=== PATIENT | female | born 1950 | race Caucasian/White ===

== ENCOUNTER 2025-02-14 16:21 | Inpatient (IN) | payer MEDICARE ==
[~2025-02-14] VITALS: Ht 162.6 cm; Wt 61.2 kg
[2025-02-15 08:55] VITALS: BP 127/83; TEMP 98.8
[2025-02-15 09:20] VITALS: BP 127/83; TEMP 98.8
[2025-02-15 19:00] VITALS: BP 102/60; TEMP 97.8; O2SAT 96
[2025-02-15] MEDS ORDERED: EMPA10TA PO (20:28)
[2025-02-15] MEDS ORDERED: NALO4SPR NS (20:28)
[2025-02-15] MEDS ORDERED: METH-806 PO (20:28)
[2025-02-15] MEDS ORDERED: ALPR0.5T PO (20:28)
[2025-02-15] MEDS ORDERED: NIAC-48 PO (20:28)
[2025-02-15] MEDS ORDERED: CALC-903 PO (20:28)
[2025-02-15] MEDS ORDERED: DOCU100T2 PO (20:28)
[2025-02-15] MEDS ORDERED: ALBU18HF2 INH (20:28)
[2025-02-15] MEDS ORDERED: CYCL30DR EACHEYE (20:28)
[2025-02-15] MEDS ORDERED: FLUT16SP16 NS (20:28)
[2025-02-15] MEDS ORDERED: FLUO20TA28 PO (20:28)
[2025-02-15] MEDS ORDERED: BISA5TAB10 PO (20:28)
[2025-02-15] MEDS ORDERED: FERR325T23 PO (20:28)
[2025-02-15] MEDS ORDERED: SACU1TAB PO (20:28)
[2025-02-15] MEDS ORDERED: HYDR-894 PO (20:28)
[2025-02-15] MEDS ORDERED: BUSP10TA3 PO (20:28)
[2025-02-15] MEDS ORDERED: LEVA0.6320 IH (20:28)
[2025-02-15] MEDS ORDERED: ONDA4TAB11 PO (20:28)
[2025-02-15] MEDS ORDERED: RIVA15TA2 PO (20:28)
[2025-02-15] MEDS ORDERED: FAMO20TA8 PO (20:28)
[2025-02-15] MEDS ORDERED: ATOR40TA PO (20:28)
[2025-02-15] MEDS ORDERED: PRED50TA PO (20:28)
[2025-02-15] MEDS ORDERED: CHOL10005 PO (20:28)
[2025-02-15] MEDS ORDERED: AMIO200T5 PO (20:28)
[2025-02-15] MEDS ORDERED: CARV6.252 PO (20:28)
[2025-02-15] MEDS ORDERED: LEVALBUTEROL HCL NEB 0.63 MG/3 ML NEBU IH PRN (20:45)
[2025-02-15] MEDS ORDERED: ALBUTEROL SULFATE 8 GM HFA.AER.AD INH PRN (20:45)
[2025-02-15] MEDS ORDERED: ALPRAZOLAM 0.5 MG TABLET PO PRN (20:45)
[2025-02-15] MEDS ORDERED: BISACODYL 5 MG TABLET.DR PO PRN (20:45)
[2025-02-15] MEDS ORDERED: METHOCARBAMOL 500 MG TABLET PO PRN (20:45)
[2025-02-15] MEDS ORDERED: NALOXONE NASAL SPRAY 4 MG SPRAY NS PRN (20:45)
[2025-02-15] MEDS ORDERED: ONDANSETRON ODT 4 MG TAB.RAPDIS SL PRN (20:45)
[2025-02-15] MEDS: ALPRAZOLAM 0.5 MG TABLET PO PRN (21:25)
[2025-02-15] MEDS: HYDROCODONE/APAP 5-325MG TABLET PO PRN (21:26)
[2025-02-15] MEDS ORDERED: DOCUSATE SODIUM 100 MG CAPSULE PO PRN (21:30)
[2025-02-15] MEDS ORDERED: REMEDY ESSENTIAL ZINC PASTE 113 GM TOP PRN (23:15)
[2025-02-16 03:59] VITALS: BP 102/60; TEMP 97.8; O2SAT 96
[2025-02-16 07:22] VITALS: BP 127/85; TEMP 97.9; O2SAT 97
[2025-02-16] MEDS ORDERED: NALOXONE NASAL SPRAY 4 MG SPRAY NS PRN (08:00)
[2025-02-16] MEDS ORDERED: ALBUTEROL SULFATE 8 GM HFA.AER.AD INH PRN (08:00)
[2025-02-16] MEDS: SACUBITRIL/VALSARTAN 24 MG-26 TABLET PO SCH (09:00)
[2025-02-16] MEDS: EMPAGLIFLOZIN 10 MG TABLET PO SCH (09:00)
[2025-02-16] MEDS ORDERED: NIACIN 500 MG TABLET.SA PO SCH ×2 (09:00→11:30)
[2025-02-16] MEDS: FLUOXETINE HCL 20 MG CAPSULE PO SCH (09:00)
[2025-02-16] MEDS: FLUTICASONE PROP NASAL SPRAY 16 GM BOTTLE NS SCH (09:00)
[2025-02-16 09:02] VITALS: BP 129/80; TEMP 98.2; O2SAT 96
[2025-02-16] MEDS: FERROUS SULFATE 325 MG TABEC PO SCH (09:14)
[2025-02-16] MEDS: CALCIUM CARBONATE 600 MG TABLET PO SCH (09:15)
[2025-02-16] MEDS: CHOLECALCIFEROL 1,000 UNIT TABLET PO SCH (09:15)
[2025-02-16] MEDS: RIVAROXABAN 15 MG TABLET PO SCH (09:16)
[2025-02-16] MEDS: FAMOTIDINE 20 MG TABLET PO SCH (09:17)
[2025-02-16] MEDS: ATORVASTATIN 40 MG TABLET PO SCH (09:17)
[2025-02-16] MEDS: AMIODARONE HCL 200 MG TABLET PO SCH (09:18)
[2025-02-16] MEDS: CARVEDILOL 6.25 MG TABLET PO SCH (09:18)
[2025-02-16] MEDS ORDERED: VITA-287 PO (10:29)
[2025-02-16] MEDS ORDERED: LEVALBUTEROL HCL NEB 0.63 MG/3 ML NEBU IH PRN (10:45)
[2025-02-16] MEDS ORDERED: ALBUTEROL SULFATE 1.25 MG/3 ML NEBU NEB PRN (12:15)
[2025-02-16] MEDS ORDERED: ACETAMINOPHEN/CODEINE 300-30 MG TABLET PO PRN (12:30)
[2025-02-16 15:12] LABS: PLATELET COUNT (AUTO) 243 K/uL (179-408); RED BLOOD CELL COUNT(AUTO) 3.80 MIL/uL (3.63-4.92); RED CELL DISTRIBUTION WIDTH 18.6 % (12.3-17.7); WHITE BLOOD COUNT (AUTO) 9.7 K/uL (3.8-11.8)
[2025-02-16 15:22] LABS: CREATININE 1.8 mg/dL (0.6-1.3); SODIUM SERUM 135 mmol/L (136-145); UREA NITROGEN, BLOOD 46 mg/dL (7-18)
[2025-02-16 15:53] LABS: BAND % (MANUAL) 1 % (0-10); LYMPHOCYTES % (MANUAL) 8 % (20-40); MONOCYTES % (MANUAL) 9 % (2-10); NEUTROPHILS % (MANUAL) 82 % (42-75); PLATELET ESTIMATE ADEQUATE
[2025-02-16] MEDS ORDERED: HYDR-3974 PO (16:25)
[2025-02-16] MEDS ORDERED: ACET1TAB23 PO (16:26)
[2025-02-16] MEDS ORDERED: ALBU1.257 NEB (17:14)
[2025-02-17] MEDS ORDERED: FLUOXETINE HCL 20 MG CAPSULE PO SCH (09:00)
[2025-02-17] MEDS ORDERED: RIVAROXABAN 15 MG TABLET PO SCH (18:00)
[2025-02-18] MEDS ORDERED: FERROUS SULFATE 325 MG TABEC PO SCH (09:00)
[2025-02-18] MEDS ORDERED: BUSP10TA3 PO (15:52)
[2025-02-18] MEDS ORDERED: RIVA15TA2 PO (15:52)
[2025-02-18] MEDS ORDERED: METH-806 PO (15:52)
[2025-02-18 16:00] VITALS: BP 114/63; TEMP 97.8; O2SAT 96
[2025-02-18] MEDS ORDERED: ACET325T53 PO (16:13)
[2025-02-18] MEDS ORDERED: BUTA1CAP46 PO (16:15)
[2025-02-18] MEDS ORDERED: CEFT1FRO2 IV (16:17)
[2025-02-18] MEDS ORDERED: MAGN400O6 PO (16:20)
[2025-02-18] MEDS ORDERED: ONDA4VIA23 IV (16:22)
[2025-02-18] MEDS ORDERED: ZINC113P3 TP (16:24)
[2025-02-18] MEDS ORDERED: ACETAMINOPHEN PO PRN (17:30)
[2025-02-18] MEDS ORDERED: CAFFEINE PO PRN (17:30)
[2025-02-18] MEDS ORDERED: ALBUTEROL SULFATE 1.25 MG/3 ML NEBU NEB PRN (17:30)
[2025-02-18] MEDS ORDERED: MAGNESIUM HYDROXIDE 30 ML LIQUID UDC PO PRN (17:30)
[2025-02-18] MEDS ORDERED: [UNRECOGNIZED DRUG - OTHER] PO PRN (17:30)
[2025-02-18] MEDS ORDERED: BISACODYL 5 MG TABLET.DR PO PRN (17:30)
[2025-02-18] MEDS ORDERED: BUTALB PO PRN (17:30)
[2025-02-18] MEDS ORDERED: METHOCARBAMOL 500 MG TABLET PO PRN (17:30)
[2025-02-18] MEDS ORDERED: ONDANSETRON 4 MG/2 ML VIAL IV PRN (17:30)
[2025-02-18] MEDS ORDERED: SACUBITRIL/VALSARTAN 24 MG-26 TABLET PO SCH (18:00)
[2025-02-18] MEDS: RIVAROXABAN 15 MG TABLET PO SCH (18:11)
[2025-02-18] MEDS: ALPRAZOLAM 0.5 MG TABLET PO PRN (18:55)
[2025-02-18 20:00] VITALS: BP 113/68; TEMP 98.3; O2SAT 98
[2025-02-18] MEDS: CARVEDILOL 6.25 MG TABLET PO SCH (20:51)
[2025-02-18] MEDS: FLUOXETINE HCL 10 MG CAPSULE PO ONE (20:51)
[2025-02-18] MEDS: REMEDY ESSENTIAL ZINC PASTE 113 GM TOP SCH (20:52)
[2025-02-18] MEDS: SACUBITRIL/VALSARTAN 24 MG-26 TABLET PO SCH (21:32)
[2025-02-19] VITALS (7 sets, daily range): BP systolic 117–154; BP diastolic 66–81; TEMP 97.6–99.1; O2SAT 95–99
[2025-02-19 07:17] LABS: PLATELET COUNT (AUTO) 242 K/uL (179-408); RED BLOOD CELL COUNT(AUTO) 3.91 MIL/uL (3.63-4.92); RED CELL DISTRIBUTION WIDTH 19.0 % (12.3-17.7); WHITE BLOOD COUNT (AUTO) 9.1 K/uL (3.8-11.8)
[2025-02-19 07:42] LABS: ASPARTATE AMINOTRANSFERASE 30 U/L (15-37); CREATININE 0.7 mg/dL (0.6-1.3); SODIUM SERUM 139 mmol/L (136-145); TOTAL PROTEIN, SERUM 4.7 g/dL (6.4-8.2); UREA NITROGEN, BLOOD 25 mg/dL (7-18)
[2025-02-19] MEDS: FLUTICASONE PROP NASAL SPRAY 16 GM BOTTLE NS SCH (08:46)
[2025-02-19] MEDS: VITAMIN B COMPLEX 1 TABLET PO SCH (08:47)
[2025-02-19] MEDS: AMIODARONE HCL 200 MG TABLET PO SCH (08:48)
[2025-02-19] MEDS: CALCIUM CARBONATE 600 MG TABLET PO SCH (08:48)
[2025-02-19] MEDS: EMPAGLIFLOZIN 10 MG TABLET PO SCH (08:51)
[2025-02-19] MEDS: CEphaleXIN 250 MG CAPSULE PO SCH (08:51)
[2025-02-19] MEDS: ATORVASTATIN 40 MG TABLET PO SCH (08:52)
[2025-02-19] MEDS: FAMOTIDINE 20 MG TABLET PO SCH (08:52)
[2025-02-19] MEDS: FLUOXETINE HCL 10 MG CAPSULE PO SCH (08:52)
[2025-02-19] MEDS: CHOLECALCIFEROL 1,000 UNIT TABLET PO SCH (08:53)
[2025-02-19] MEDS ORDERED: FLUOXETINE HCL 20 MG CAPSULE PO SCH ×2 (09:00)
[2025-02-19] MEDS ORDERED: NIACIN 500 MG TABLET.SA PO SCH (09:00)
[2025-02-19] MEDS: DOCUSATE SODIUM 100 MG CAPSULE PO PRN (10:54)
[2025-02-19] MEDS: MAGNESIUM HYDROXIDE 30 ML LIQUID UDC PO PRN (15:02)
[2025-02-19] MEDS: PROTEIN SUPPLEMENT (PROSTAT) 30 ML LIQUID PO SCH (16:48)
[2025-02-19] MEDS: FLEET ENEMA 133 ML BOTTLE RC ONE (20:13)
[2025-02-19] MEDS: DOCUSATE SODIUM 100 MG CAPSULE PO SCH (20:14)
[2025-02-19] MEDS: BUTALB/ACETAMINOPHEN/CAFFEINE CAPSULE PO PRN (21:12)
[2025-02-20 07:14] VITALS: BP 119/71; TEMP 98.1; O2SAT 97
[2025-02-20 07:14] LABS: PLATELET COUNT (AUTO) 253 K/uL (179-408); RED BLOOD CELL COUNT(AUTO) 3.93 MIL/uL (3.63-4.92); RED CELL DISTRIBUTION WIDTH 19.0 % (12.3-17.7); WHITE BLOOD COUNT (AUTO) 8.9 K/uL (3.8-11.8)
[2025-02-20 07:30] LABS: ASPARTATE AMINOTRANSFERASE 32 U/L (15-37); CREATININE 0.9 mg/dL (0.6-1.3); SODIUM SERUM 138 mmol/L (136-145); TOTAL PROTEIN, SERUM 4.8 g/dL (6.4-8.2); UREA NITROGEN, BLOOD 21 mg/dL (7-18)
[2025-02-20] MEDS: FERROUS SULFATE 325 MG TABEC PO SCH (09:04)
[2025-02-20] MEDS: ACETAMINOPHEN 325 MG TABLET PO PRN (11:20)
[2025-02-20 17:06] VITALS: O2SAT 97
[2025-02-20 18:34] LABS: *BILIRUBIN,URIN NEGATIVE (NEGATIVE); *BLOOD, URINE 3+ (NEGATIVE); *CLARITY,URINE SLIGHTLY CLOUDY (CLEAR); *COLOR,URINE YELLOW (YELLOW); *KETONES,URINE NEGATIVE (NEGATIVE); *PROTEIN,URINE 1+ (NEGATIVE); *UROBILINOGEN,URINE 0.2 E.U./dl (NORMAL); LEUKOCYTE ESTERASE ,URINE 3+ (NEGATIVE); NITRITE, URINE NEGATIVE (NEGATIVE); UGLUCOSE 3+ (NEGATIVE)
[2025-02-20 18:44] LABS: SQUAMOUS EPITHELIAL CELL,UR FEW /HPF (NONE SEEN)
[2025-02-20 19:51] VITALS: BP 123/78; TEMP 98.1; O2SAT 97
[2025-02-20] MEDS: SUMATRIPTAN SUCCINATE 6 MG/0.5 ML VIAL SQ ONE (20:20)
[2025-02-20] MEDS: ALPRAZOLAM 0.5 MG TABLET PO PRN (20:28)
[2025-02-21 05:13] VITALS: BP 118/72; TEMP 97.8; O2SAT 96
[2025-02-21 06:01] VITALS: O2SAT 97
[2025-02-21 08:00] VITALS: BP 142/86; TEMP 98.5; O2SAT 99
[2025-02-21 17:30] VITALS: O2SAT 97
[2025-02-21 18:20] VITALS: BP 108/64; TEMP 98.1; O2SAT 96
[2025-02-21 20:00] VITALS: BP 108/61; TEMP 98.4
[2025-02-21] MEDS: SULFAMETH/TRIMETH 800/160 MG TABLET PO SCH (21:43)
[2025-02-22 00:33] VITALS: O2SAT 97
[2025-02-22 07:50] VITALS: BP 140/84; TEMP 98.2; O2SAT 97
[2025-02-22 13:37] VITALS: O2SAT 97
[2025-02-22 16:04] VITALS: BP 131/77; TEMP 98; O2SAT 99
[2025-02-22 20:11] VITALS: BP 134/83; TEMP 98.1; O2SAT 99
[2025-02-23 05:59] VITALS: BP 149/80; TEMP 98.3; O2SAT 97
[2025-02-23 08:03] VITALS: BP 159/85; TEMP 98.9; O2SAT 99
[2025-02-23 17:10] VITALS: BP 134/80; TEMP 98.9; O2SAT 96
[2025-02-23 20:30] VITALS: BP 113/60; TEMP 98.5; O2SAT 98
[2025-02-23 21:55] VITALS: O2SAT 97
[2025-02-24 05:25] VITALS: BP 135/74; TEMP 98.1; O2SAT 98
[2025-02-24 10:35] VITALS: O2SAT 97
[2025-02-24 16:14] VITALS: BP 109/66; TEMP 97.7; O2SAT 97
[2025-02-24 20:00] VITALS: BP 111/59; TEMP 97.9; O2SAT 98
[2025-02-24 21:54] VITALS: O2SAT 97
[2025-02-25] VITALS (8 sets, daily range): BP systolic 103–136; BP diastolic 54–65; TEMP 97.4–98.1; O2SAT 95–98
[2025-02-26 00:16] VITALS: O2SAT 97
[2025-02-26 05:45] VITALS: BP 132/63; TEMP 98; O2SAT 97
[2025-02-26 07:35] LABS: PLATELET COUNT (AUTO) 319 K/uL (179-408); RED BLOOD CELL COUNT(AUTO) 3.43 MIL/uL (3.63-4.92); RED CELL DISTRIBUTION WIDTH 18.5 % (12.3-17.7); WHITE BLOOD COUNT (AUTO) 10.5 K/uL (3.8-11.8)
[2025-02-26 08:00] LABS: ASPARTATE AMINOTRANSFERASE 44 U/L (15-37); CREATININE 1.1 mg/dL (0.6-1.3); SODIUM SERUM 134 mmol/L (136-145); TOTAL PROTEIN, SERUM 5.6 g/dL (6.4-8.2); UREA NITROGEN, BLOOD 14 mg/dL (7-18)
[2025-02-26 10:35] VITALS: O2SAT 97
[2025-02-26] MEDS ORDERED: NEUTRA PHOS PACKET PO ONE (13:00)
[2025-02-26] MEDS: NEUTRA PHOS PACKET PO ONE (14:32)
[2025-02-26] MEDS: POTASSIUM CHLORIDE 20 MEQ TAB.PRT.SR PO ONE ×2 (14:32→17:27)
[2025-02-26] MEDS: LORAZEPAM 2 MG/1 ML VIAL IM ONE (16:31)
[2025-02-26 18:49] VITALS: BP 96/61; TEMP 97.8; O2SAT 96
[2025-02-26 20:13] VITALS: BP 114/66; TEMP 97.6; O2SAT 97
[2025-02-26] MEDS: LOPERAMIDE HCL 2 MG CAPSULE PO PRN (20:51)
[2025-02-27] VITALS (7 sets, daily range): BP systolic 102–135; BP diastolic 56–75; TEMP 97.7–98.3; O2SAT 97
[2025-02-27 06:59] LABS: CREATININE 1.1 mg/dL (0.6-1.3); SODIUM SERUM 136 mmol/L (136-145); UREA NITROGEN, BLOOD 9 mg/dL (7-18)
[2025-02-27] MEDS: ONDANSETRON HCL 4 MG TABLET PO PRN (10:27)
[2025-02-28 05:11] VITALS: BP 124/50; TEMP 98.2; O2SAT 98
[2025-02-28 08:32] VITALS: BP 130/67
[2025-02-28 15:33] VITALS: O2SAT 98
== END 2025-02-28 15:15 | disposition home health service (06) | DRG 189 ==
LOC: UNDODISIN 02-16 15:40
PROVIDERS: ADMIT Physical Medicine & Rehabilitation Pain Medicine; ATTEND Physical Medicine & Rehabilitation Pain Medicine
DX: J96.21 Acute and chronic respiratory failure with hypoxia (principal); E43 Unspecified severe protein-calorie malnutrition; N17.0 Acute kidney failure with tubular necrosis; I13.0 Hypertensive heart and chronic kidney disease with heart failure and stage 1 through stage 4 chronic kidney disease, or unspecified chronic kidney disease; I50.32 Chronic diastolic (congestive) heart failure; I48.20 Chronic atrial fibrillation, unspecified; J44.1 Chronic obstructive pulmonary disease with (acute) exacerbation; K56.7 Ileus, unspecified; D68.59 Other primary thrombophilia; E87.1 Hypo-osmolality and hyponatremia; E78.5 Hyperlipidemia, unspecified; I48.0 Paroxysmal atrial fibrillation; Z85.3 Personal history of malignant neoplasm of breast; Z79.01 Long term (current) use of anticoagulants; N18.9 Chronic kidney disease, unspecified; Z90.81 Acquired absence of spleen; Z90.5 Acquired absence of kidney; Z90.12 Acquired absence of left breast and nipple; Z85.528 Personal history of other malignant neoplasm of kidney; M19.90 Unspecified osteoarthritis, unspecified site; Z96.642 Presence of left artificial hip joint; R53.1 Weakness; N83.9 Noninflammatory disorder of ovary, fallopian tube and broad ligament, unspecified; E87.6 Hypokalemia; E88.09 Other disorders of plasma-protein metabolism, not elsewhere classified; F32.A Depression, unspecified; F41.9 Anxiety disorder, unspecified; G89.29 Other chronic pain; I95.1 Orthostatic hypotension; Z87.891 Personal history of nicotine dependence; Z99.81 Dependence on supplemental oxygen
CPT/HCPCS: 36415; 70030-TC; 74018; 83605; 83735; 84100; 85025; 85610; 87086; 97535-GO-CO; A4663; J2060; J3030; J3535; J7040; J7512; Q0162

== ENCOUNTER 2025-02-16 15:53 | Inpatient (IN) | payer MEDICARE ==
[~2025-02-16] VITALS: Ht 162.6 cm; Wt 62.6 kg
[~2025-02-16 15:53] MED LIST: ALBU18HF2 INH; ALPR0.5T PO; AMIO200T5 PO; ATOR40TA PO; BISA5TAB10 PO; BUSP10TA3 PO; CALC-903 PO; CARV6.252 PO; CHOL10005 PO; CYCL30DR EACHEYE; DOCU100T2 PO; EMPA10TA PO; FAMO20TA8 PO; FERR325T23 PO; FLUO20TA28 PO; FLUT16SP16 NS; HYDR-894 PO; LEVA0.6320 IH; METH-806 PO; NALO4SPR NS; NIAC-48 PO; ONDA4TAB11 PO; PRED50TA PO; RIVA15TA2 PO; SACU1TAB PO; VITA-287 PO
[2025-02-16 16:00] VITALS: BP 101/63; TEMP 98.1; O2SAT 96
[2025-02-16] MEDS ORDERED: HYDR-3974 PO (16:25)
[2025-02-16] MEDS ORDERED: ACET1TAB23 PO (16:26)
[2025-02-16] MEDS ORDERED: ALBU1.257 NEB (17:14)
[2025-02-16] MEDS ORDERED: MAGNESIUM HYDROXIDE 30 ML LIQUID UDC PO PRN (19:00)
[2025-02-16] MEDS ORDERED: ACETAMINOPHEN 325 MG TABLET PO PRN (19:00)
[2025-02-16] MEDS ORDERED: ONDANSETRON 4 MG/2 ML VIAL IV PRN (19:00)
[2025-02-16] MEDS: POTASSIUM CHLORIDE 20 MEQ TAB.PRT.SR PO ONE (20:40)
[2025-02-16] MEDS: IV NS 1000 ML 1,000 ML IV ONE (20:40)
[2025-02-16 21:05] VITALS: BP 100/58; TEMP 97.9; O2SAT 98
[2025-02-16] MEDS ORDERED: METHOCARBAMOL 500 MG TABLET PO PRN (23:00)
[2025-02-16] MEDS ORDERED: ALBUTEROL SULFATE 1.25 MG/3 ML NEBU NEB PRN (23:00)
[2025-02-16] MEDS ORDERED: BISACODYL 5 MG TABLET.DR PO PRN (23:00)
[2025-02-16] MEDS ORDERED: DOCUSATE SODIUM 100 MG CAPSULE PO PRN (23:45)
[2025-02-17] VITALS (7 sets, daily range): BP systolic 117–148; BP diastolic 68–78; TEMP 97.6–99.2; O2SAT 93–99
[2025-02-17 07:26] LABS: PLATELET COUNT (AUTO) 259 K/uL (179-408); RED BLOOD CELL COUNT(AUTO) 3.95 MIL/uL (3.63-4.92); RED CELL DISTRIBUTION WIDTH 18.7 % (12.3-17.7); WHITE BLOOD COUNT (AUTO) 8.6 K/uL (3.8-11.8)
[2025-02-17 08:07] LABS: CREATININE 1.2 mg/dL (0.6-1.3); SODIUM SERUM 139 mmol/L (136-145); UREA NITROGEN, BLOOD 44 mg/dL (7-18)
[2025-02-17] MEDS: FLUTICASONE PROP NASAL SPRAY 16 GM BOTTLE NS SCH (08:39)
[2025-02-17] MEDS: FAMOTIDINE 20 MG TABLET PO SCH (08:40)
[2025-02-17] MEDS: CALCIUM CARBONATE 600 MG TABLET PO SCH (08:40)
[2025-02-17] MEDS: FLUOXETINE HCL 20 MG CAPSULE PO SCH (08:40)
[2025-02-17] MEDS: CHOLECALCIFEROL 1,000 UNIT TABLET PO SCH (08:40)
[2025-02-17] MEDS: ATORVASTATIN 40 MG TABLET PO SCH (08:40)
[2025-02-17] MEDS: VITAMIN B COMPLEX 1 TABLET PO SCH (08:40)
[2025-02-17] MEDS: EMPAGLIFLOZIN 10 MG TABLET PO SCH (08:48)
[2025-02-17] MEDS: NIACIN 500 MG TABLET.SA PO SCH (09:00)
[2025-02-17] MEDS: IV NS 1000 ML 1,000 ML IV SCH (10:16)
[2025-02-17] MEDS: AMIODARONE HCL 200 MG TABLET PO SCH (10:18)
[2025-02-17] MEDS: ALPRAZOLAM 0.5 MG TABLET PO PRN (10:18)
[2025-02-17 12:16] LABS: *BLOOD, URINE 3+ (NEGATIVE); *CLARITY,URINE SLIGHTLY CLOUDY (CLEAR); *COLOR,URINE RED (YELLOW); *KETONES,URINE NEGATIVE (NEGATIVE); *UROBILINOGEN,URINE 1.0 E.U./dl (NORMAL); LEUKOCYTE ESTERASE ,URINE 1+ (NEGATIVE); NITRITE, URINE POSITIVE (NEGATIVE)
[2025-02-17 12:23] LABS: *PROTEIN,URINE 3+ (NEGATIVE)
[2025-02-17 12:24] LABS: *BILIRUBIN,URIN 1+ (NEGATIVE); UGLUCOSE 2+ (NEGATIVE)
[2025-02-17 12:40] LABS: SQUAMOUS EPITHELIAL CELL,UR FEW /HPF (NONE SEEN); TRIPLE PHOSPHATE CRYSTAL,UR MANY /HPF (NONE SEEN)
[2025-02-17 13:08] LABS: *CREATININE,URINE 51.2 mg/dL (30-125); *SODIUM RNDM,URINE 25.0 mmol/L (40-220); *URINE TOTAL PROTEIN RANDOM 156.5 mg/dL (<150/24HR)
[2025-02-17] MEDS: NEUTRA PHOS PACKET PO ONE (13:17)
[2025-02-17] MEDS: HYDROCODONE/APAP 5-325MG TABLET PO PRN (13:22)
[2025-02-17] MEDS ORDERED: KETOROLAC TROMETHAMINE 15 MG INJ IVP ONE (13:45)
[2025-02-17] MEDS ORDERED: METOCLOPRAMIDE HCL 10 MG/2 ML VIAL IV ONE (13:45)
[2025-02-17] MEDS: diphenhydrAMINE 50 MG/1 ML VIAL IV ONE (14:40)
[2025-02-17] MEDS ORDERED: CEFTRIAXONE 1 G VIAL IV SCH (14:45)
[2025-02-17] MEDS: BUTALB/ACETAMINOPHEN/CAFFEINE CAPSULE PO PRN (15:09)
[2025-02-17] MEDS: CEFTRIAXONE 1 G in IV DEXTROSE 5% 50 ML IV SCH (16:00)
[2025-02-17] MEDS: CARVEDILOL 6.25 MG TABLET PO SCH (17:27)
[2025-02-17] MEDS: RIVAROXABAN 15 MG TABLET PO SCH (17:28)
[2025-02-17] MEDS: REMEDY ESSENTIAL ZINC PASTE 113 GM TP PRN (17:36)
[2025-02-18 00:26] VITALS: BP 119/68; TEMP 98.4; O2SAT 96
[2025-02-18 04:39] VITALS: BP 143/81; TEMP 98.4; O2SAT 97
[2025-02-18 05:42] VITALS: O2SAT 98
[2025-02-18 06:59] LABS: PLATELET COUNT (AUTO) 252 K/uL (179-408); RED BLOOD CELL COUNT(AUTO) 3.83 MIL/uL (3.63-4.92); RED CELL DISTRIBUTION WIDTH 18.9 % (12.3-17.7); WHITE BLOOD COUNT (AUTO) 9.3 K/uL (3.8-11.8)
[2025-02-18 07:27] LABS: ASPARTATE AMINOTRANSFERASE 21 U/L (15-37); CREATININE 1.4 mg/dL (0.6-1.3); SODIUM SERUM 138 mmol/L (136-145); TOTAL PROTEIN, SERUM 4.5 g/dL (6.4-8.2); UREA NITROGEN, BLOOD 37 mg/dL (7-18)
[2025-02-18 07:34] VITALS: BP 147/74; TEMP 98.3; O2SAT 99
[2025-02-18 08:34] VITALS: BP 147/74
[2025-02-18] MEDS: FERROUS SULFATE 325 MG TABEC PO SCH (08:34)
[2025-02-18] MEDS: NEUTRA PHOS PACKET PO ONE (09:05)
[2025-02-18] MEDS: POTASSIUM CHLORIDE 20 MEQ TAB.PRT.SR PO ONE (12:33)
[2025-02-18 14:03] VITALS: O2SAT 98
[2025-02-18] MEDS ORDERED: RIVA15TA2 PO (15:52)
[2025-02-18] MEDS ORDERED: METH-806 PO (15:52)
[2025-02-18] MEDS ORDERED: BUSP10TA3 PO (15:52)
[2025-02-18] MEDS ORDERED: ACET325T53 PO (16:13)
[2025-02-18] MEDS ORDERED: BUTA1CAP46 PO (16:15)
[2025-02-18] MEDS ORDERED: CEFT1FRO2 IV (16:17)
[2025-02-18] MEDS ORDERED: MAGN400O6 PO (16:20)
[2025-02-18] MEDS ORDERED: ONDA4VIA23 IV (16:22)
[2025-02-18] MEDS ORDERED: ZINC113P3 TP (16:24)
== END 2025-02-18 14:08 | DRG 312 ==
LOC: TELE3 15:53 → MEDSURG3 02-18 10:07
PROVIDERS: ADMIT Registered Nurse Psychiatric/Mental Health; ATTEND Registered Nurse Psychiatric/Mental Health
DX: I95.1 Orthostatic hypotension (principal); N17.9 Acute kidney failure, unspecified; E87.1 Hypo-osmolality and hyponatremia; I45.2 Bifascicular block; J96.11 Chronic respiratory failure with hypoxia; I50.32 Chronic diastolic (congestive) heart failure; N39.0 Urinary tract infection, site not specified; E87.6 Hypokalemia; E83.51 Hypocalcemia; Z90.12 Acquired absence of left breast and nipple; Z85.3 Personal history of malignant neoplasm of breast; Z90.5 Acquired absence of kidney; Z85.528 Personal history of other malignant neoplasm of kidney; J44.9 Chronic obstructive pulmonary disease, unspecified; I48.0 Paroxysmal atrial fibrillation; Z96.642 Presence of left artificial hip joint; Z99.81 Dependence on supplemental oxygen; Z79.01 Long term (current) use of anticoagulants; Z90.81 Acquired absence of spleen; N18.32 Chronic kidney disease, stage 3b; F41.9 Anxiety disorder, unspecified; F32.A Depression, unspecified; E83.39 Other disorders of phosphorus metabolism; E78.5 Hyperlipidemia, unspecified; M15.9 Polyosteoarthritis, unspecified
CPT/HCPCS: 36415; 70450; 71045; 76770; 83735; 84100; 84300; 85025; 87086; 93005; 93307; A4663; A6213; G0378; J0696; J1200; J3535; J7040